=== PATIENT | female | born 1995 | race Caucasian/White ===

== ENCOUNTER 2017-03-11 01:35 | Inpatient (IN) | payer OTHER ==
[2017-03-11 02:12] LABS: Hematocrit 41 % (35-47); Hemoglobin 14.1 g/dl (12.0-16.0); Mean Corpuscular HGB Conc 35 g/dl (31-36); Mean Corpuscular Hemoglobin 31 pg (27-31); Mean Corpuscular Volume 89 fL (80-97); Mean Platelet Volume 8 um3 (7.4-10.4); Red Blood Count 4.54 10^6/ul (4.0-5.4); Red Cell Distribution Width 13 % (10.5-15); White Blood Count 7.9 10^3/ul (3.5-10.8)
[2017-03-11 02:17] LABS: Urine Bacteria Absent (Absent); Urine Bilirubin Negative (Negative); Urine Glucose Negative (Negative); Urine Nitrite Negative (Negative)
[2017-03-11 02:26] LABS: Acetaminophen < 15 mcg/mL; Alcohol 29 mg/dL (<10); Salicylate < 2.50 mg/dL (<30)
[2017-03-11 02:28] LABS: ALT 8 U/L (7-52); AST 17 U/L (13-39); Albumin 4.2 g/dL (3.2-5.2); Alkaline Phosphatase 64 U/L (34-104); Anion Gap 7 mmol/L (2-11); BUN/Creatinine Ratio 16.5 (8-20); Blood Urea Nitrogen 14 mg/dL (6-24); CO2 Carbon Dioxide 25 mmol/L (22-32); Calcium 9.3 mg/dL (8.6-10.3); Chloride 104 mmol/L (101-111); EGFR African American 108.6 (>60); EGFR Non-African American 84.4 (>60); Globulin 2.6 g/dL (2-4); Glucose 89 mg/dL (70-100); Potassium 3.3 mmol/L (3.5-5.0); Sodium 136 mmol/L (133-145); Total Protein 6.8 g/dL (6.4-8.9)
[2017-03-11 02:40] LABS: Benzodiazepine Urine Screen None Detected (None Detect)
[2017-03-11 02:41] LABS: TSH (Thyroid Stimulating Horm) 2.99 mcIU/mL (0.34-5.60)
--- NOTE | 2017-03-11 06:14 | ED ---
Anibal Castillo Angela, scribed for Kings Mcginnis on 03/11/17 at 0147 . Psychiatric Complaint - HPI Summary HPI Summary: This pt is a 21 y/o female BIB [facility] presenting to [facility] on a 9.45 for SI. Pt reports "my mom made me come." She states she does not remember saying she had SI. Pt currently denies SI thoughts or plan. Upon questioning if she is suicidal pt notes "earlier in the day." PMHx includes bipolar disorder. She reports taking her medications. Pt states drinking alcohol, but denies tobacco and drug use. - History Of Current Complaint Chief Complaint: EDMentalHealth Time Seen by Provider: 03/11/17 01:42 Hx Obtained From: Patient Onset/Duration: Lasting Days Timing: Days Severity Currently: None - per pt Character: Depressed Has Suicidal: Denies: Thoughts, With A Plan Has Homicidal: Denies: Thoughts, With A Plan - Allergies/Home Medications Allergies/Adverse Reactions: Allergies Allergy/AdvReac Type Severity Reaction Status Date / Time No Known Drug Allergy Allergy See Comment Verified 03/11/17 01:40 PMH/Surg Hx/FS Hx/Imm Hx Endocrine/Hematology History: Denies: Hx Anemia - h/o anemia 4-5 years ago Psychiatric History: Reports: Hx Depression, Hx Bipolar Disorder Denies: Hx Eating Disorder, Hx of Violent Episodes Against Others - Surgical History Surgery Procedure, Year, and Place: tonsillectomy age 8-9 Infectious Disease History: No Infectious Disease History: Denies: Traveled Outside the [place] in Last 30 Days - Family History Family History: Father - tonsilar problems. - Social History Alcohol Use: Daily Hx Substance Use: No Substance Use Type: Reports: None Hx Tobacco Use: No Smoking Status (MU): Never Smoked Tobacco Review of Systems Negative: Fever, Chills Psychological: Other - SI, now resolved per pt Positive: Depressed All Other Systems Reviewed And Are Negative: Yes Physical Exam - Summary Physical Exam Summary: Appearance: Well appearing, no pain distress Skin: warm, dry, reflects adequate perfusion Head/face: normal Eyes: EOMI, LISE ENT: normal Neck: supple, nontender Respiratory: CTA, breath sounds present Cardiovascular: RRR, pulses symmetrical Abdomen: nontender, soft Bowel: present Musculoskeletal: normal, strength/ROM intact Neuro: normal, sensory motor intact, A&Ox3 Psych: depressed affect. Triage Information Reviewed: Yes Vital Signs On Initial Exam: Initial Vitals Temp Pulse Resp BP Pulse Ox 98.0 F 97 16 128/91 100 03/11/17 01:38 03/11/17 01:38 03/11/17 01:38 03/11/17 01:38 03/11/17 01:38 Vital Signs Reviewed: Yes Diagnostics - Vital Signs Vital Signs Temp Pulse Resp BP Pulse Ox 03/11/17 01:38 98.0 F 97 16 128/91 100 - Laboratory Lab Results: Lab Results 03/11/17 03/11/17 03/11/17 Range/Units 01:56 01:56 01:56 WBC 7.9 (3.5-10.8) 10^3/ul RBC 4.54 (4.0-5.4) 10^6/ul Hgb 14.1 (12.0-16.0) g/dl Hct 41 (35-47) % MCV 89 (80-97) fL MCH 31 (27-31) pg MCHC 35 (31-36) g/dl RDW 13 (10.5-15) % Plt Count 261 (150-450) 10^3/ul MPV 8 (7.4-10.4) um3 Neut % (Auto) 42.0 (38-83) % Lymph % (Auto) 46.5 (25-47) % Jenkins % (Auto) 9.5 H (1-9) % Eos % (Auto) 1.4 (0-6) % Baso % (Auto) 0.6 (0-2) % Absolute Neuts (auto) 3.3 (1.5-7.7) 10^3/ul Absolute Lymphs (auto) 3.7 (1.0-4.8) 10^3/ul Absolute Monos (auto) 0.8 (0-0.8) 10^3/ul Absolute Eos (auto) 0.1 (0-0.6) 10^3/ul Absolute Basos (auto) 0 (0-0.2) 10^3/ul Absolute Nucleated RBC 0 10^3/ul Nucleated RBC % 0.1 Sodium 136 (133-145) mmol/L Potassium 3.3 L (3.5-5.0) mmol/L Chloride 104 (101-111) mmol/L Carbon Dioxide 25 (22-32) mmol/L Anion Gap 7 (2-11) mmol/L BUN 14 (6-24) mg/dL Creatinine 0.85 (0.51-0.95) mg/dL Est GFR ( Amer) 108.6 (>60) Est GFR (Non-Af Amer) 84.4 (>60) BUN/Creatinine Ratio 16.5 (8-20) Glucose 89 (70-100) mg/dL Calcium 9.3 (8.6-10.3) mg/dL Total Bilirubin 0.20 (0.2-1.0) mg/dL AST 17 (13-39) U/L ALT 8 (7-52) U/L Alkaline Phosphatase 64 (34-104) U/L Total Protein 6.8 (6.4-8.9) g/dL Albumin 4.2 (3.2-5.2) g/dL Globulin 2.6 (2-4) g/dL Albumin/Globulin Ratio 1.6 (1-3) TSH 2.99 (0.34-5.60) mcIU/mL Beta HCG, Quant < 0.60 mIU/mL Urine Color Urine Appearance Urine pH (5-9) Ur Specific [place] (1.010-1.030) Urine Protein (Negative) Urine Ketones (Negative) Urine Blood (Negative) Urine Nitrate (Negative) Urine Bilirubin (Negative) Urine Urobilinogen (Negative) Ur Leukocyte Esterase (Negative) Urine WBC (Auto) (Absent) Urine RBC (Auto) (Absent) Ur Squamous Epith Cells (Absent) Urine Bacteria (Absent) Urine Glucose (Negative) Salicylates < 2.50 (<30) mg/dL Urine Opiates Screen None detected (None Detect) Acetaminophen < 15 mcg/mL Ur Barbiturates Screen None detected (None Detect) Ur Phencyclidine Scrn None detected (None Detect) Ur Amphetamines Screen None detected (None Detect) U Benzodiazepines Scrn None detected (None Detect) Urine Cocaine Screen None detected (None Detect) U Cannabinoids Screen None detected (None Detect) Serum Alcohol 29 H (<10) mg/dL 03/11/17 Range/Units 01:56 WBC (3.5-10.8) 10^3/ul RBC (4.0-5.4) 10^6/ul Hgb (12.0-16.0) g/dl Hct (35-47) % MCV (80-97) fL MCH (27-31) pg MCHC (31-36) g/dl RDW (10.5-15) % Plt Count (150-450) 10^3/ul MPV (7.4-10.4) um3 Neut % (Auto) (38-83) % Lymph % (Auto) (25-47) % Jenkins % (Auto) (1-9) % Eos % (Auto) (0-6) % Baso % (Auto) (0-2) % Absolute Neuts (auto) (1.5-7.7) 10^3/ul Absolute Lymphs (auto) (1.0-4.8) 10^3/ul Absolute Monos (auto) (0-0.8) 10^3/ul Absolute Eos (auto) (0-0.6) 10^3/ul Absolute Basos (auto) (0-0.2) 10^3/ul Absolute Nucleated RBC 10^3/ul Nucleated RBC % Sodium (133-145) mmol/L Potassium (3.5-5.0) mmol/L Chloride (101-111) mmol/L Carbon Dioxide (22-32) mmol/L Anion Gap (2-11) mmol/L BUN (6-24) mg/dL Creatinine (0.51-0.95) mg/dL Est GFR ( Amer) (>60) Est GFR (Non-Af Amer) (>60) BUN/Creatinine Ratio (8-20) Glucose (70-100) mg/dL Calcium (8.6-10.3) mg/dL Total Bilirubin (0.2-1.0) mg/dL AST (13-39) U/L ALT (7-52) U/L Alkaline Phosphatase (34-104) U/L Total Protein (6.4-8.9) g/dL Albumin (3.2-5.2) g/dL Globulin (2-4) g/dL Albumin/Globulin Ratio (1-3) TSH (0.34-5.60) mcIU/mL Beta HCG, Quant mIU/mL Urine Color Yellow Urine Appearance Clear Urine pH 5.0 (5-9) Ur Specific [place] 1.027 (1.010-1.030) Urine Protein Negative (Negative) Urine Ketones Trace H (Negative) Urine Blood Negative (Negative) Urine Nitrate Negative (Negative) Urine Bilirubin Negative (Negative) Urine Urobilinogen Negative (Negative) Ur Leukocyte Esterase Trace H (Negative) Urine WBC (Auto) Trace(0-5/hpf) (Absent) Urine RBC (Auto) Trace(0-2/hpf) (Absent) Ur Squamous Epith Cells Present H (Absent) Urine Bacteria Absent (Absent) Urine Glucose Negative (Negative) Salicylates (<30) mg/dL Urine Opiates Screen (None Detect) Acetaminophen mcg/mL Ur Barbiturates Screen (None Detect) Ur Phencyclidine Scrn (None Detect) Ur Amphetamines Screen (None Detect) U Benzodiazepines Scrn (None Detect) Urine Cocaine Screen (None Detect) U Cannabinoids Screen (None Detect) Serum Alcohol (<10) mg/dL Result Diagrams: 03/11/17 01:56 03/11/17 01:56 Lab Statement: Any lab studies that have been ordered have been reviewed, and results considered in the medical decision making process. - EKG 0434 Cardiac Rate: NL - 74 bpm EKG Rhythm: Sinus Rhythm EKG Interpretation: No acute changes Course/Dx - Course Assessment/Plan: Pt is a 21 y/o female who presents on a 9.45 for SI. Blood work was obtained. In the ED course, the pt admitted to the nurse that she had ingested 10-15 motrin pills (a handfull) and 3-5 effexor (75 mg each) last night. Poison control by contacted by the nurse. They recommended and EKG and monitoring the pt for 12 hours from the time of ingestion. EKG shows NSR. Pt will be signed out to Dr. Navas, pending disposition, awaiting MHE. - Differential Dx/Clinical Impression Differential Diagnosis/HQI/PQRI: Positive: Bipolar Disorder, Depression, Drug Overdose/Intentional, Suicide Attempt, Suicidal Ideation Provider Diagnosis: Depressed, Drug overdose, Suicidal ideation Discharge - Discharge Plan Condition: Stable Disposition: OTHER Discharge Disposition Comment: signed out to Dr. Navas, pending disposition, awaiting MHE. Referrals: No Primary Care Phys,NOPCP [Primary Care Provider] - The documentation as recorded by the Anibal bhandari Angela accurately reflects the service I personally performed and the decisions made by , Kings Mcginnis.
--- NOTE | 2017-03-11 12:18 | CONSULT ---
Consult Consult: Ms. Wallace presented after an ibuprofen overdose. She was observed here int the ED for 6 hours, remained stable and was medically cleared. She had a MHE and they offered her a voluntary admission which she accepted. She is being admitted with a diagnosis of depression with suicidal ideation.
[2017-03-11] MEDS ORDERED: Acetaminophen TAB* 325 MG PO PRN (12:22)
[2017-03-11] MEDS ORDERED: Al Hydrox/Mg Hydrox/Simet LIQ* 30 ML UDC PO PRN (12:22)
[2017-03-11] MEDS ORDERED: hydrOXYzine HCL TAB* 50 MG PO PRN (12:23)
[2017-03-11] MEDS: QUEtiapine TAB* 300 MG PO SCH (20:50)
[2017-03-12] MEDS: Venlafaxine EXT RELEASE CAP* 75 MG PO SCH (09:30)
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
[2017-03-12] MEDS: QUEtiapine TAB* 300 MG PO SCH (22:00)
[2017-03-13] MEDS: Venlafaxine EXT RELEASE CAP* 75 MG PO SCH (08:33)
[2017-03-13] MEDS: QUEtiapine TAB* 300 MG PO SCH (21:24)
[2017-03-14] MEDS: Venlafaxine EXT RELEASE CAP* 75 MG PO SCH (10:21)
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
[2017-03-14] MEDS: QUEtiapine TAB* 100 MG PO SCH (21:22)
[2017-03-14] MEDS: Lithium Carbonate TAB* 300 MG PO SCH (21:23)
[2017-03-15] MEDS: Venlafaxine EXT RELEASE CAP* 75 MG PO SCH (08:11)
[2017-03-15] MEDS: Lithium Carbonate TAB* 300 MG PO SCH ×2 (08:11→21:18)
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
[2017-03-15 12:10] LABS: HDL Cholesterol 73.6 mg/dL
[2017-03-15] MEDS: QUEtiapine TAB* 100 MG PO SCH (21:19)
[2017-03-16] MEDS: Lithium Carbonate TAB* 300 MG PO SCH ×2 (08:05→19:53)
[2017-03-16] MEDS: Venlafaxine EXT RELEASE CAP* 75 MG PO SCH (08:05)
--- NOTE | 2017-03-16 10:27 | PN ---
Subjective - Subjective Service Type: 19769 Hosp care 15 min low complexity Subjective: Patient noted to be visible in the milieu, pleasant, observed being more social and participating in milieu activities and groups. Patient upset that her previous therapist at [facility] sent a copy of the letter patient wrote her to patient's mother. Patient expressed her love for her therapist and wrote suicidal statements in the letter due to the feelings not being reciprocated. Patient is med compliant and denies med s/e's. She reports sleep and appetite are fair. Patient again denies SI/HI and AH/VH. Objective - Appearance Appearance: Well Developed/Nourished Dysmorphic Features: No Hygiene: Normal Grooming: Fairly Well Kept - Behavior Psychomotor Activities: Normal Exhibits Abnormal Movement: No - Attitude and Relatedness Attitude and Relatedness: Cooperative Eye Contact: Fair - Speech Quality: Unpressured Latencies: Normal Quantity: Appropriate - Mood Patient's Decription of Mood: "Okay" - Affect Observed Affect: Constricted Affect Consistent with: Dysphoria - Thought Process Patient's Thought Process: Coherent Thought Content: No Passive Wish, No Suicidal Planning, No Homicidal Ideation, No Paranoid Ideation - Sensorium Experiencing Hallucinations: No, Sensorium is Clear Type of Hallucinations: Visual: No, Auditory: No, Command: No - Level of Consciousness Level of Consciousness: Alert Orientation: Yes Intact, Yes Orientated to Time, Yes Orientated to Place, Yes Orientated to Person - Impulse Control Impulse Control: Intact - Insight and Judgement Insight and Judgement: Poor - Group Participation Particating in Group Activities: Yes - Medication Management Medication Management Adherence: Yes Assessment - Assessment Merits Inpatient Hospitalization: For Immediate Safety, For Stabilization Inpatient DSM-IV Dx: 1. Bipolar 1 d/o, MRE depressed w/PFs. 2. Alcohol use d/o , severe. 3. r/o PTSD (childhood sexual abuse) Plan - Plan Treatment Plan: Name: JONO TAVERAS Birthdate: 1995 [id number] 1. Continue admission to [facility] for safety and symptom mx. 2. Continue current Seroquel at reduced dose of 150mg down from 300mg po qhs for insomnia/paranoia/anxiety, due to current hypersomnia. 3. Continue [place] 300mg po BID for mood stabilization. 4. Continue Effexor XR 150mg po qam for depressive symptoms and anxiety, as patient on a proper mood stabilizer. 5. Family meeting scheduled for tomorrow 03/17/17 with mom, therapist-Madhav, patient, and this provider. 6. Continue gathering collateral information from family and oupt providers. Continued Medication Management: Different Medication Medications: Current Medications Acetaminophen (Tylenol Tab*) 650 mg PO Q4H PRN PRN Reason: for pain; or Temp >101 F Al Hydrox/Mg Hydrox/Simethicone (Maalox Plus*) 30 ml PO Q4H PRN PRN Reason: INDIGESTION Hydroxyzine HCl (Atarax Tab*) 50 mg PO Q6H PRN PRN Reason: AGITATION/ANXIETY/INSOMNIA [place] Carbonate ([place] Carbonate Tab*) 300 mg PO BID [facility] Last Admin: 03/16/17 08:05 Dose: 300 mg Quetiapine Fumarate (Seroquel Tab*) 150 mg PO BEDTIME [facility] Last Admin: 03/15/17 21:19 Dose: 150 mg Venlafaxine HCl (Effexor Xr Cap*) 150 mg PO DAILY [facility] Last Admin: 03/16/17 08:05 Dose: 150 mg - Discharge Plan Discharge Plan: Outpatient Follow Up Outpatient Program: [facility]
--- NOTE | 2017-03-16 16:34 | PN ---
MHU: Group Therapy Note - Service Type Service Type: [id number] Group Psychotherapy - Medication Education Group: Patient attended group and presented with flat affect that did not vary with discussion. Although responsive to direct prompts to respond to questions, patient did not engage in spontaneous conversation.
[2017-03-16] MEDS: QUEtiapine TAB* 100 MG PO SCH (19:53)
[2017-03-17] MEDS: Lithium Carbonate TAB* 300 MG PO SCH ×2 (08:09→20:52)
[2017-03-17] MEDS: Venlafaxine EXT RELEASE CAP* 75 MG PO SCH (08:09)
--- NOTE | 2017-03-17 12:02 | PN ---
MHU: Group Therapy Note - Service Type Service Type: [id number] Group Psychotherapy - Cognitive Behavioral Group Therapy ( CBT):Patient was attentive and participatory in CBT programming this morning, and remained in good behavioral control. Patient expressed positive insights regarding relevant treatment interventions and goals.
--- NOTE | 2017-03-17 16:32 | PN ---
Subjective - Subjective Service Type: 00276 Hosp care 15 min low complexity Subjective: Family meeting held today with patient's mom, [facility] therapist-Madhav, unit [place], patient and this provider. Patient expressed anger and was hurt that her mother shared an intimate letter with the and her [facility] therapist-Madhav that she'd written last week to her previous therapist Breana at [facility]. Patient was constricted in affect and manner throughout the meeting. She was informed by her mom that she would not be allowed to return home after discharge. Patient expressed understanding of her mother's decision due to patient's multiple inappropriate comments about suicide to her 11yo sister. Patient reports she will be thinking of friend/family member to call regarding discharge disposition. Patient reports she has decided to go ahead with her trip to [facility]. Patient has hx of traveling abroad, but was encouraged and counseled on being safe there. Patient and mother were open to family counseling and patient was encouraged to continue talking out her anger issues with a therapist. Much of patient's anger is with herself due to feeling unaccomplished so far in life. Patient reports she will go back to school at [place]. She was encouraged not to quit. Patient amenable to continuing her hospitalization for ongoing therapy and development of coping mechanism. She has been med compliant and denies med s/e's. Patient reports fair sleep and appetite. She denies SI/HI and AH/VH. Objective - Appearance Appearance: Well Developed/Nourished Dysmorphic Features: No Hygiene: Normal Grooming: Well Kept - Behavior Psychomotor Activities: Normal Exhibits Abnormal Movement: No - Attitude and Relatedness Attitude and Relatedness: Cooperative Eye Contact: Good - Speech Quality: Unpressured Latencies: Normal Quantity: Appropriate - Mood Patient's Decription of Mood: "Upset" - Affect Observed Affect: Constricted Affect Consistent with: Dysphoria - Thought Process Patient's Thought Process: Coherent Thought Content: No Passive Wish, No Suicidal Planning, No Homicidal Ideation, No Paranoid Ideation - Sensorium Experiencing Hallucinations: No, Sensorium is Clear Type of Hallucinations: Visual: No, Auditory: No, Command: No - Level of Consciousness Level of Consciousness: Alert Orientation: Yes Intact, Yes Orientated to Time, Yes Orientated to Place, Yes Orientated to Person - Impulse Control Impulse Control: Intact - Insight and Judgement Insight and Judgement: Fair - Group Participation Particating in Group Activities: Yes - Medication Management Medication Management Adherence: Yes Assessment - Assessment Merits Inpatient Hospitalization: For Immediate Safety, For Stabilization Inpatient DSM-IV Dx: 1. Bipolar 1 d/o, MRE depressed w/PFs. 2. Alcohol use d/o , severe. 3. r/o PTSD (childhood sexual abuse) Plan - Plan Treatment Plan: Name: JONO TAVERAS Birthdate: 1995 [id number] 1. Continue admission to [facility] for safety and symptom mx. 2. Continue current Seroquel at 150mg po qhs for insomnia/paranoia/anxiety, due to current hypersomnia. 3. Continue [place] 300mg po BID for mood stabilization. 4. Will increase Effexor XR from 150mg to 225mg po qam for depressive symptoms and anxiety, as patient on a proper mood stabilizer. 5. Family meeting held today with patient's mom, [facility] therapist-Madhav, unit [facility] , patient and this provider. 6. Collateral information gained from mom and oupt providers. Continued Medication Management: Different Medication Medications: Current Medications Acetaminophen (Tylenol Tab*) 650 mg PO Q4H PRN PRN Reason: for pain; or Temp >101 F Al Hydrox/Mg Hydrox/Simethicone (Maalox Plus*) 30 ml PO Q4H PRN PRN Reason: INDIGESTION Hydroxyzine HCl (Atarax Tab*) 50 mg PO Q6H PRN PRN Reason: AGITATION/ANXIETY/INSOMNIA [place] Carbonate ([place] Carbonate Tab*) 300 mg PO BID [facility] Last Admin: 03/17/17 08:09 Dose: 300 mg Quetiapine Fumarate (Seroquel Tab*) 150 mg PO BEDTIME [facility] Last Admin: 03/16/17 19:53 Dose: 150 mg Venlafaxine HCl (Effexor Xr Cap*) 225 mg PO DAILY [facility] - Discharge Plan Discharge Plan: Outpatient Follow Up Outpatient Program: [facility]
[2017-03-17] MEDS: QUEtiapine TAB* 100 MG PO SCH (20:53)
[2017-03-18] MEDS: Venlafaxine EXT RELEASE CAP* 75 MG PO SCH (09:01)
[2017-03-18] MEDS: Lithium Carbonate TAB* 300 MG PO SCH ×2 (09:01→20:13)
--- NOTE | 2017-03-18 09:47 | PN ---
Subjective - Subjective Service Type: [id number] Hosp care 15 min low complexity Subjective: Patient noted to be visible in the milieu, pleasant, social with peers, and participating in groups and milieu activities. Patient reports she's med compliant and she denies med s/e's. Patient reports fair sleep and appetite. Patient informed order for use of the computer in the comfort room has been written so that she can continue to finalize trip details to [place]. She reports her flight leaves 04/08/17. She continues to look for a discharge disposition. She was encouraged to engage fully in therapy over the weekend. Tentatively discharge has been scheduled for early next week. Patient again denies SI/HI and AH/VH. Objective - Appearance Appearance: Well Developed/Nourished Dysmorphic Features: No Hygiene: Normal Grooming: Well Kept - Behavior Psychomotor Activities: Normal Exhibits Abnormal Movement: No - Attitude and Relatedness Attitude and Relatedness: Cooperative Eye Contact: Good - Speech Quality: Unpressured Latencies: Normal Quantity: Appropriate - Mood Patient's Decription of Mood: "Good" - Affect Observed Affect: Fair Affect Consistent with: Euthymia - Thought Process Patient's Thought Process: Coherent Thought Content: No Passive Wish, No Suicidal Planning, No Homicidal Ideation, No Paranoid Ideation - Sensorium Experiencing Hallucinations: No, Sensorium is Clear Type of Hallucinations: Visual: No, Auditory: No, Command: No - Level of Consciousness Level of Consciousness: Alert Orientation: Yes Intact, Yes Orientated to Time, Yes Orientated to Place, Yes Orientated to Person - Impulse Control Impulse Control: Intact - Insight and Judgement Insight and Judgement: Fair - Group Participation Particating in Group Activities: Yes - Medication Management Medication Management Adherence: Yes Assessment - Assessment Merits Inpatient Hospitalization: For Immediate Safety, For Stabilization Inpatient DSM-IV Dx: 1. Bipolar 1 d/o, MRE depressed w/PFs. 2. Alcohol use d/o , severe. 3. r/o PTSD (childhood sexual abuse) Plan - Plan Treatment Plan: Name: JONO TAVERAS Birthdate: 1995 [id number] 1. Continue admission to [facility] for safety and symptom mx. 2. Continue current Seroquel 150mg po qhs for insomnia/paranoia/anxiety. 3. Continue [place] 300mg po BID for mood stabilization. [place] level/CMP on Tuesday03/19/17. 4. Continue Effexor XR 225mg po qam for depressive symptoms and anxiety, as patient on a proper mood stabilizer. 5. Family meeting completed on 03/17/17 with patient's mom, [facility] therapist- jones Corey, patient and this provider. 6. Collateral information obtained from family and oupt providers. Continued Medication Management: Different Medication Medications: Current Medications Acetaminophen (Tylenol Tab*) 650 mg PO Q4H PRN PRN Reason: for pain; or Temp >101 F Al Hydrox/Mg Hydrox/Simethicone (Maalox Plus*) 30 ml PO Q4H PRN PRN Reason: INDIGESTION Hydroxyzine HCl (Atarax Tab*) 50 mg PO Q6H PRN PRN Reason: AGITATION/ANXIETY/INSOMNIA [place] Carbonate ([place] Carbonate Tab*) 300 mg PO BID [facility] Last Admin: 03/18/17 09:01 Dose: 300 mg Quetiapine Fumarate (Seroquel Tab*) 150 mg PO BEDTIME [facility] Last Admin: 03/17/17 20:53 Dose: 150 mg Venlafaxine HCl (Effexor Xr Cap*) 225 mg PO DAILY [facility] Last Admin: 03/18/17 09:01 Dose: 225 mg - Discharge Plan Discharge Plan: Outpatient Follow Up Outpatient Program: [facility]
[2017-03-18] MEDS: QUEtiapine TAB* 100 MG PO SCH (20:14)
[2017-03-19] MEDS: Venlafaxine EXT RELEASE CAP* 75 MG PO SCH (08:16)
[2017-03-19] MEDS: Lithium Carbonate TAB* 300 MG PO SCH ×2 (08:16→20:18)
[2017-03-19 09:00] LABS: Lithium 0.43 mmol/L (0.6-1.2)
[2017-03-19 09:02] LABS: Albumin 4.5 g/dL (3.2-5.2); BUN/Creatinine Ratio 15.1 (8-20); Calcium 9.7 mg/dL (8.6-10.3); EGFR African American 97.9 (>60); EGFR Non-African American 76.1 (>60); Globulin 2.6 g/dL (2-4); Total Bilirubin 0.4 mg/dL (0.2-1.0); Total Protein 7.1 g/dL (6.4-8.9)
[2017-03-19] MEDS: QUEtiapine TAB* 100 MG PO SCH (20:19)
[2017-03-20] MEDS: Venlafaxine EXT RELEASE CAP* 75 MG PO SCH (08:26)
[2017-03-20] MEDS: Lithium Carbonate TAB* 300 MG PO SCH ×2 (08:26→20:20)
[2017-03-20] MEDS: QUEtiapine TAB* 100 MG PO SCH (20:21)
[2017-03-21] MEDS: Venlafaxine EXT RELEASE CAP* 75 MG PO SCH (08:49)
[2017-03-21] MEDS: Lithium Carbonate TAB* 300 MG PO SCH ×2 (08:49→20:17)
--- NOTE | 2017-03-21 16:56 | PN ---
Subjective - Subjective Service Type: 31433 Hosp care 15 min low complexity Subjective: Patient noted to be visible in the milieu, participating in groups and milieu activities. Patient has been noted to be social with peers, jovial and playful which caused some disruptions over the weekend. Patient has participated well in groups and is noted to have been expressing more insight and judgment over the weekend. Patient reports her mood as "good". Patient reports she has had good sleep and her appetite is wnl. Patient now reports she will not go on her planned trip to [facility], but will focus on finding housing in [place] and preparing to return to . Patient reports she feels ready for discharge. Patient is psychiatrically stable. Tentatively discharge has been scheduled for tomorrow. Patient again denies SI/HI and AH/VH. Objective - Appearance Appearance: Well Developed/Nourished Dysmorphic Features: No Hygiene: Normal Grooming: Well Kept - Behavior Psychomotor Activities: Normal Exhibits Abnormal Movement: No - Attitude and Relatedness Attitude and Relatedness: Cooperative Eye Contact: Good - Speech Quality: Unpressured Latencies: Normal Quantity: Appropriate - Mood Patient's Decription of Mood: "Fine" - Affect Observed Affect: Good Affect Consistent with: Euthymia - Thought Process Patient's Thought Process: Coherent Thought Content: No Passive Wish, No Suicidal Planning, No Homicidal Ideation, No Paranoid Ideation - Sensorium Experiencing Hallucinations: No, Sensorium is Clear Type of Hallucinations: Visual: No, Auditory: No, Command: No - Level of Consciousness Level of Consciousness: Alert Orientation: Yes Intact, Yes Orientated to Time, Yes Orientated to Place, Yes Orientated to Person - Impulse Control Impulse Control: Intact - Insight and Judgement Insight and Judgement: Fair - Group Participation Particating in Group Activities: Yes - Medication Management Medication Management Adherence: Yes Assessment - Assessment Merits Inpatient Hospitalization: For Immediate Safety, For Stabilization Inpatient DSM-IV Dx: 1. Bipolar 1 d/o, MRE depressed w/PFs. 2. Alcohol use d/o , severe. 3. r/o PTSD (childhood sexual abuse) Plan - Plan Treatment Plan: Name: JONO TAVERAS Birthdate: 1995 [id number] 1. Continue admission to [facility] for safety and symptom mx. 2. Continue current Seroquel 150mg po qhs for insomnia/paranoia/anxiety. 3. Continue [place] 300mg po BID for mood stabilization. 03/19/17:[place] level -0.43 & CMP-wnl. 4. Continue Effexor XR 225mg po qam for depressive symptoms and anxiety, as patient on a proper mood stabilizer. 5. Family meeting completed on 03/17/17 with patient's mom, [facility] therapist- Madhav, unit SW, patient and this provider. 6. Awaiting safe discharge disposition. f/u appts scheduled with [facility]. 7. Collateral information obtained from family and oupt providers. Medications: Current Medications Acetaminophen (Tylenol Tab*) 650 mg PO Q4H PRN PRN Reason: for pain; or Temp >101 F Al Hydrox/Mg Hydrox/Simethicone (Maalox Plus*) 30 ml PO Q4H PRN PRN Reason: INDIGESTION Hydroxyzine HCl (Atarax Tab*) 50 mg PO Q6H PRN PRN Reason: AGITATION/ANXIETY/INSOMNIA [place] Carbonate ([place] Carbonate Tab*) 300 mg PO BID [facility] Last Admin: 03/21/17 08:49 Dose: 300 mg Quetiapine Fumarate (Seroquel Tab*) 150 mg PO BEDTIME [facility] Last Admin: 03/20/17 20:21 Dose: 150 mg Venlafaxine HCl (Effexor Xr Cap*) 225 mg PO DAILY [facility] Last Admin: 03/21/17 08:49 Dose: 225 mg - Discharge Plan Discharge Plan: Outpatient Follow Up Outpatient Program: [facility]
[2017-03-21] MEDS: QUEtiapine TAB* 100 MG PO SCH (20:16)
[2017-03-22 07:47] VITALS: BP 98/76
[2017-03-22] MEDS: Venlafaxine EXT RELEASE CAP* 75 MG PO SCH (09:29)
[2017-03-22] MEDS: Lithium Carbonate TAB* 300 MG PO SCH (09:30)
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
== END 2017-03-22 18:00 | disposition home or self-care (01) | DRG 885 ==
LOC: ED 01:35 → BSU 16:21
PROVIDERS: ADMIT Psychiatry & Neurology Psychiatry; ATTEND Psychiatry & Neurology Psychiatry
DX: F31.9 Bipolar disorder, unspecified (principal); F33.3 Major depressive disorder, recurrent, severe with psychotic symptoms; F10.10 Alcohol abuse, uncomplicated; Y90.1 Blood alcohol level of 20-39 mg/100 ml; Z81.1 Family history of alcohol abuse and dependence
CPT/HCPCS: 36415; 80053; 80061; 80178; 80307; 80320; 80329; 81003; 81015; 83036; 84443; 84702; 85025; 87086; 90853; 93005; 99222; 99231; 99238; A9270-GY; G0480